=== PATIENT | female | born 1960 | race African-American/Black ===

== ENCOUNTER 2018-11-19 09:46 | Emergency (ER) | payer OTHER ==
[2018-11-19 09:55] VITALS: BP 162/83; PULSE 92; TEMP 98.3; BMI 24.5
--- NOTE | 2018-11-19 10:13 | PDOC ---
History of Present Illness - General Chief Complaint: Back Pain Stated Complaint: BACK PAIN Time Seen by Provider: 11/19/18 10:02 History Source: Patient Exam Limitations: No Limitations - History of Present Illness Initial Comments: 11/19/18 10:16 Onset of low back pain/spasm started Wednesday as progressively worsened since that time. States needed to wait till before she could get to the hospital and has only use Tylenol for pain relief. States his had similar episodes in the past probably spontaneously resolve however has had to use a muscle relaxant with good resolved a few years ago. Denies fever, denies any changes with bowel or bladder, denies any knowledge of trauma or exercise change but states is same type of spasmodic pain experienced multiple times in the past with radiation to her left gluteus and down the back of her leg. Occurred: reports: yesterday Severity: reports: moderate Pain Location: reports: back Method of Injury: Yes: unknown Modifying Factors: improves with: pain medication Loss of Consciousness: no loss of consciousness Associated Symptoms (Fall): denies symptoms Past History - Travel Traveled outside of the country in the last 30 days: No Close contact w/someone who was outside of country & ill: No - Past Medical History Allergies/Adverse Reactions: Allergies Allergy/AdvReac Type Severity Reaction Status Date / Time No Known Allergies Allergy Verified 11/19/18 09:53 Home Medications: Ambulatory Orders Cyclobenzaprine HCl 10 mg PO Q8H PRN #14 tablet 11/19/18 Naproxen [Naprosyn -] 500 mg PO BID #30 tablet 11/19/18 Cancer: Yes (lt breast) COPD: No - Suicide/Smoking/Psychosocial Hx Smoking Status: Yes Smoking History: Never smoked Number of Cigarettes Smoked Daily: 4 Hx Alcohol Use: No Drug/Substance Use Hx: No Review of Systems - Review of Systems Able to Perform ROS?: Yes Is the patient limited Mohawk proficient: Yes Constitutional: Yes: Symptoms Reported, See HPI, Malaise HEENTM: Yes: See HPI. No: Symptoms Reported Respiratory: Yes: See HPI. No: Symptoms reported ABD/GI: No: Symptoms Reported : No: Symptoms Reported Musculoskeletal: Yes: Symptoms Reported, See HPI, Back Pain, Muscle Pain, Muscle Weakness Integumentary: No: Symptoms Reported All Other Systems: Reviewed and Negative *Physical Exam - Vital Signs Last Vital Signs Temp Pulse Resp BP Pulse Ox 98.3 F 92 H 18 162/83 98 11/19/18 09:53 11/19/18 09:53 11/19/18 09:53 11/19/18 09:53 11/19/18 09:53 - Physical Exam General Appearance: Yes: Nourished, Appropriately Dressed, Apparent Distress, Mild Distress HEENT: positive: LUBA, Normal ENT Inspection, TMs Normal, Pharynx Normal Neck: positive: Supple. negative: Tender, Lymphadenopathy (R), Lymphadenopathy (L) Respiratory/Chest: positive: Lungs Clear. negative: Chest Tender Gastrointestinal/Abdominal: positive: Soft. negative: Tender Musculoskeletal: positive: Normal Inspection, Muscle Spasm. negative: CVA Tenderness, Vertebral Tenderness Extremity: positive: Normal Capillary Refill, Normal Inspection, Normal Range of Motion Integumentary: positive: Normal Color, Dry, Warm, Pale Neurologic: positive: die polisher II-XII NML intact, Fully Oriented, Alert, Normal Mood/ Affect, Normal Response, Motor Strength 5/5 Moderate Sedation - Procedure Monitoring Vital Signs: Procedure Monitoring Vital Signs Temperature 98.3 F 11/19/18 09:53 Pulse Rate 92 H 11/19/18 09:53 Respiratory Rate 18 11/19/18 09:53 Blood Pressure 162/83 11/19/18 09:53 O2 Sat by Pulse Oximetry (%) 98 11/19/18 09:53 Progress Note - Progress Note Progress Note: Recurrent back spasm, will treat with NSAIDs and cyclobenzaprine *DC/Admit/Observation/Transfer Diagnosis at time of Disposition: Back muscle spasm - Discharge Dispostion Disposition: HOME Condition at time of disposition: Stable Decision to Admit order: No - Referrals - Patient Instructions Printed Discharge Instructions: DI for Back Strain or Sprain Additional Instructions: Rest, no heavy lifting or exercise until pain is resolved Hot soaks to neck and low back as often as possible/hot showers or Jacuzzis No massage or therapy until spasm is gone Continue Naprosyn 500 mg tablet, 1 tablet every 8 hours for the next 3 days then as needed for pain and swelling Cyclobenzaprine 1-10mg every 8 hours as needed for spasm If not significant improvement within 24 hours with medication and rest regime, followup with private physician for change in medications and /or therapy. - Post Discharge Activity Forms/Work/School Notes: Back to Work
== END 2018-11-19 10:22 | disposition home or self-care (01) ==
LOC: JERFT 09:46
DX: M62.830 Muscle spasm of back (principal); Z85.3 Personal history of malignant neoplasm of breast
CPT/HCPCS: 99281-25

== ENCOUNTER 2022-07-11 09:05 | Emergency (ER) | payer OTHER ==
[2022-07-11 09:21] VITALS: BP 154/97; PULSE 97; RESP 20; TEMP 97.8; BMI 25.3
[2022-07-11] MEDS ORDERED: KETOROLAC TROMETHAMINE 30 MG/1 ML VIAL IM ONE (10:42)
[2022-07-11] MEDS ORDERED: LIDOCAINE HCL 5% TOP OINTMENT 50 GM TUBE TP ONE (10:43)
[2022-07-11] MEDS ORDERED: LIDOCAINE 5% TOPICAL PATCH TP ONE (11:03)
[2022-07-11] MEDS ORDERED: LIDOCAINE 5% TOPICAL PATCH ONE (11:04)
[2022-07-11] MEDS ORDERED: KETOROLAC TROMETHAMINE 30 MG/1 ML VIAL ONE (11:05)
[2022-07-11] MEDS ORDERED: LIDOCAINE PATCH REMOVAL MC SCH (22:00)
== END 2022-07-11 12:56 | disposition home or self-care (01) ==
LOC: JERFT 09:05 → JER 09:05 → JERFT 12:56
PROC: 3E0233Z Introduction of Anti-inflammatory into Muscle, Percutaneous Approach (ICD-10-PCS; principal; 2022-07-11)
DX: M54.42 Lumbago with sciatica, left side (principal)
CPT/HCPCS: 99284-25